=== PATIENT | female | born 1950 | race Caucasian/White ===

== ENCOUNTER 2018-04-14 18:28 | Inpatient (IN) | payer OTHER ==
[~2018-04-14] VITALS: Ht 157.5 cm; Wt 64.4 kg
[~2018-04-14 18:28] MED LIST: LISINOPRIL2.5 MG PO; METFORMIN ER500 M1 PO; MOTRIN800 MG PO; NITROFURANTOIN50 MG PO; PRI20 PO; SIMVASTATIN20 M1 PO; TRE400 PO; ZES5 PO
[2018-04-14 18:38] VITALS: Ht 157.5 cm; Wt 64.4 kg
[2018-04-14 20:01] LABS: BASOPHIL % 0.1 % (0-2); PLATELET COUNT 208 x10^3mcL (130-400); RED CELL DISTRIBUTION WIDTH 14.2 % (11.5-14.5)
[2018-04-14 20:05] LABS: CALCIUM 9.2 mg/dL (8.5-10.1); CARBON DIOXIDE 24.3 mmol/L (21-32); CHLORIDE SERUM 95 mmol/L (98-107); CREATININE SERUM 0.9 mg/dL (0.6-1.0); GFR1 > 60 mL/min; GLUCOSE SERUM 211 mg/dL (74-106); POTASSIUM SERUM 3.7 mmol/L (3.5-5.1); SODIUM SERUM 132 mmol/L (136-145)
[2018-04-14 20:17] LABS: ALKALINE PHOSPHATASE 79 U/L (46-116); ALT/SGPT 42 U/L (14-59); AST/SGOT 46 U/L (15-37); FREE T4 0.86 ng/dL (0.76-1.46); LIPASE 50 IU/L (73-393); TOTAL PROTEIN, SERUM 7.5 g/dL (6.4-8.2)
[2018-04-14] MEDS ORDERED: SIMVASTATIN10 M1 PO (20:35)
[2018-04-14] MEDS ORDERED: LISINOPRIL2.5 MG PO (20:35)
[2018-04-14] MEDS ORDERED: CARVEDILOL3.125 M1 PO (20:35)
[2018-04-14] MEDS ORDERED: HYDROCHLOROTH12.5 M2 PO (20:36)
[2018-04-14] MEDS ORDERED: PANTOPRAZOLE SO40 M1 PO (20:36)
[2018-04-14 23:10] VITALS: BP 152/66
[2018-04-15 05:31] VITALS: BP 153/68
[2018-04-15 07:12] LABS: ALBUMIN 2.5 g/dL (3.4-5.0); ALKALINE PHOSPHATASE 104 U/L (46-116); ALT/SGPT 163 U/L (14-59); AST/SGOT 196 U/L (15-37); BILIRUBIN TOTAL 0.25 mg/dL (0.20-1.00); CALCIUM 8.9 mg/dL (8.5-10.1); CARBON DIOXIDE 22.2 mmol/L (21-32); CHLORIDE SERUM 100 mmol/L (98-107); CREATININE SERUM 0.7 mg/dL (0.6-1.0); GFR1 > 60 mL/min; GLUCOSE SERUM 130 mg/dL (74-106); MAGNESIUM 1.8 mg/dL (1.8-2.4); PHOSPHOROUS 1.7 mg/dL (2.5-4.9); SODIUM SERUM 135 mmol/L (136-145); TOTAL PROTEIN, SERUM 6.4 g/dL (6.4-8.2)
[2018-04-15 08:18] VITALS: BP 123/54
[2018-04-15 08:47] VITALS: BP 153/68
[2018-04-15 14:09] VITALS: BP 128/61
[2018-04-15 14:48] LABS: microscopic required? YES; urine erythrocyte TRACE (NEGATIVE)
[2018-04-15 18:36] VITALS: BP 133/59
[2018-04-15 20:13] VITALS: BP 151/73
[2018-04-16 05:22] VITALS: BP 135/59
[2018-04-16 06:57] LABS: ALKALINE PHOSPHATASE 179 U/L (46-116); ALT/SGPT 310 U/L (14-59); AST/SGOT 337 U/L (15-37); CALCIUM 8.6 mg/dL (8.5-10.1); CARBON DIOXIDE 25.6 mmol/L (21-32); CHLORIDE SERUM 100 mmol/L (98-107); CREATININE SERUM 0.7 mg/dL (0.6-1.0); GFR1 > 60 mL/min; GLUCOSE SERUM 116 mg/dL (74-106); MAGNESIUM 1.9 mg/dL (1.8-2.4); PHOSPHOROUS 3.2 mg/dL (2.5-4.9); POTASSIUM SERUM 3.7 mmol/L (3.5-5.1); SODIUM SERUM 135 mmol/L (136-145)
[2018-04-16 07:00] LABS: ALBUMIN 2.2 g/dL (3.4-5.0); TOTAL PROTEIN, SERUM 5.9 g/dL (6.4-8.2)
[2018-04-16 08:59] VITALS: BP 136/66
[2018-04-16] MEDS ORDERED: DOXYCYCLINE MO100 MG PO (11:53)
[2018-04-16] MEDS ORDERED: AMOX/CLAV POT1 TAB PO (11:53)
[2018-04-16] MEDS ORDERED: TESSALON PERLE100 MG PO (11:54)
[2018-04-16 17:25] VITALS: BP 147/58
[2018-04-16 20:33] VITALS: BP 138/49
[2018-04-17 06:14] VITALS: BP 151/66
[2018-04-17 06:31] LABS: ALKALINE PHOSPHATASE 274 U/L (46-116); ALT/SGPT 329 U/L (14-59); AST/SGOT 234 U/L (15-37); BILIRUBIN TOTAL 0.29 mg/dL (0.20-1.00); CALCIUM 8.8 mg/dL (8.5-10.1); CARBON DIOXIDE 26.3 mmol/L (21-32); CHLORIDE SERUM 99 mmol/L (98-107); CREATININE SERUM 0.6 mg/dL (0.6-1.0); GFR1 > 60 mL/min; GLUCOSE SERUM 107 mg/dL (74-106); MAGNESIUM 1.9 mg/dL (1.8-2.4); PHOSPHOROUS 3.3 mg/dL (2.5-4.9); POTASSIUM SERUM 3.7 mmol/L (3.5-5.1); SODIUM SERUM 133 mmol/L (136-145)
[2018-04-17 06:39] LABS: ALBUMIN 2.1 g/dL (3.4-5.0); TOTAL PROTEIN, SERUM 5.8 g/dL (6.4-8.2)
[2018-04-17 08:54] VITALS: BP 145/55
== END 2018-04-17 16:20 | disposition home health service (06) | DRG 193 ==
LOC: ED 18:28 → MU 21:40
PROVIDERS: Emergency Medicine; Internal Medicine Pulmonary Disease
DX: J18.9 Pneumonia, unspecified organism (principal); J96.01 Acute respiratory failure with hypoxia; E87.1 Hypo-osmolality and hyponatremia; E86.1 Hypovolemia; E11.9 Type 2 diabetes mellitus without complications; I10 Essential (primary) hypertension; E78.5 Hyperlipidemia, unspecified; M19.90 Unspecified osteoarthritis, unspecified site
CPT/HCPCS: 82962; 83880; 84439; 87804; 90658; 94150; 97116-GP; 97530-GP; J0456; J0696; J2270; J2405; J3490; J7030; J7050; J7620; Q0092

== ENCOUNTER 2018-05-08 16:48 | Emergency (ER) | payer OTHER ==
[~2018-05-08] VITALS: Ht 154.9 cm; Wt 64.4 kg
[~2018-05-08 16:48] MED LIST changes: +AMOX/CLAV POT1 TAB PO; +CARVEDILOL3.125 M1 PO; +DOXYCYCLINE MO100 MG PO; +HYDROCHLOROTH12.5 M2 PO; +PANTOPRAZOLE SO40 M1 PO; +SIMVASTATIN10 M1 PO; +TESSALON PERLE100 MG PO
[2018-05-08 16:54] VITALS: Ht 154.9 cm; Wt 64.4 kg
[2018-05-08 18:34] LABS: BASOPHIL % 0.4 % (0-2); PLATELET COUNT 199 x10^3mcL (130-400); RED CELL DISTRIBUTION WIDTH 15.1 % (11.5-14.5)
[2018-05-08 18:43] LABS: CALCIUM 9.5 mg/dL (8.5-10.1); CHLORIDE SERUM 101 mmol/L (98-107); CREATININE SERUM 0.8 mg/dL (0.6-1.0); GFR1 > 60 mL/min; GLUCOSE SERUM 105 mg/dL (74-106); POTASSIUM SERUM 3.7 mmol/L (3.5-5.1); SODIUM SERUM 136 mmol/L (136-145)
[2018-05-08 18:48] LABS: ALBUMIN 3.8 g/dL (3.4-5.0); ALKALINE PHOSPHATASE 81 U/L (46-116); ALT/SGPT 26 U/L (14-59); AST/SGOT 18 U/L (15-37); BILIRUBIN TOTAL 0.3 mg/dL (0.20-1.00)
[2018-05-08 20:28] VITALS: BP 146/82
== END 2018-05-08 20:28 | disposition home or self-care (01) ==
LOC: ED 16:48
PROVIDERS: Emergency Medicine
DX: M54.6 Pain in thoracic spine (principal); R07.2 Precordial pain; I10 Essential (primary) hypertension; E11.9 Type 2 diabetes mellitus without complications; Z88.2 Allergy status to sulfonamides
CPT/HCPCS: 36415; 83880; J0696; J2001; Q9967